=== PATIENT | male | born 1940 | race Caucasian/White ===

== ENCOUNTER → 2018-01-15 13:00 | Outpatient (CLI) | payer MEDICARE, OTHER, SELFPAY ==
[2018-01-15 13:47] LABS: Abs Immature Grans 0.03 k/cumm (0.0-0.09); Absolute Basophil Count 0.09 k/cumm (0.0-0.2); Absolute Lymphocyte Count 3.85 k/cumm (1.2-3.4); Basophils % 0.7; HCT 36.7 % (40.0-50.0); HGB 12.4 g/dL (13.5-17.5); Immature Grans % 0.2; Lymphocytes % 30.3; Mean Corp. HGB Concentration 33.8 g/dL (32.0-36.0); Mean Corpuscular Hemoglobin 31.1 pg (27.0-33.0); Monocytes % 9.4; Neutrophils % 57.4; Platelet Count 352 x1000/uL (130-400); RBC 3.99 m/cumm (4.50-6.00); RBC Distribution Width 12.9 % (11.8-14.1); White Blood Cell Count 12.72 k/cumm (4.4-10.8)
[2018-01-15 13:49] LABS: Absolute Eosinophil Count 0.25 k/cumm (0.0-0.7)
[2018-01-15 14:37] LABS: ALT 13 U/L (12-78); AST 13 U/L (15-37); Albumin 3.7 g/dL (3.4-5.0); Alkaline Phosphatase 97 U/L (46-116); Anion Gap 10.7 mmol/L (3-11); BUN 17 mg/dL (7-18); Bilirubin, Total 0.4 mg/dL (0.2-1.0); CO2 26.3 mmol/L (21.0-32.0); CREATININE 0.97 mg/dL (0.70-1.30); Chloride 104 mmol/L (98-107); Glucose 51 mg/dL (70-100); Potassium 4.1 mmol/L (3.5-5.1); Sodium 141 mmol/L (136-145); Total Protein 6.5 g/dL (6.4-8.2)
[2018-01-18 09:57] LABS: PSA, Diagnostic 0.3 ng/ml (0-6.5)
== END ==
PROVIDERS: PCP General Practice; Visit Provider Internal Medicine Medical Oncology
DX: C61 Malignant neoplasm of prostate (principal)
CPT/HCPCS: 36415; 80053; 84153; 85025

== ENCOUNTER 2018-04-26 12:17 | Outpatient (CLI) | payer MEDICARE, OTHER, SELFPAY ==
[2018-04-26 13:06] LABS: Abs Immature Grans 0.02 k/cumm (0.0-0.09); Absolute Basophil Count 0.08 k/cumm (0.0-0.2); Absolute Lymphocyte Count 1.75 k/cumm (1.2-3.4); Absolute Monocyte Count 1.19 k/cumm (0.11-0.7); Absolute Neutrophil Count 10.34 k/cumm (1.2-6.7); Basophils % 0.6; Eosinophils % 2.2; HCT 35.1 % (40.0-50.0); HGB 11.6 g/dL (13.5-17.5); Immature Grans % 0.1; Lymphocytes % 12.8; Mean Corpuscular Hemoglobin 30.7 pg (27.0-33.0); Mean Corpuscular Volume 92.9 fL (80-95); Mean Platelet Volume 10.8 fL (8.0-11.0); Monocytes % 8.7; Neutrophils % 75.6; Platelet Count 287 x1000/uL (130-400); RBC 3.78 m/cumm (4.50-6.00); RBC Distribution Width 12.7 % (11.8-14.1); White Blood Cell Count 13.68 k/cumm (4.4-10.8)
[2018-04-26 13:25] LABS: ALT 13 U/L (12-78); AST 10 U/L (15-37); Albumin 3.4 g/dL (3.4-5.0); Alkaline Phosphatase 83 U/L (46-116); Anion Gap 9.3 mmol/L (3-11); BUN 16 mg/dL (7-18); Bilirubin, Total 0.5 mg/dL (0.2-1.0); CO2 27.7 mmol/L (21.0-32.0); CREATININE 0.92 mg/dL (0.70-1.30); Calcium 8.8 mg/dL (8.5-10.1); Chloride 105 mmol/L (98-107); Glucose 96 mg/dL (70-100); Potassium 3.4 mmol/L (3.5-5.1); Sodium 142 mmol/L (136-145); Total Protein 6.5 g/dL (6.4-8.2)
[2018-04-27 09:14] LABS: PSA, Diagnostic 0.4 ng/ml (0-6.5)
== END 2018-04-26 12:37 ==
PROVIDERS: PCP General Practice; Visit Provider Internal Medicine Medical Oncology
DX: C61 Malignant neoplasm of prostate (principal)
CPT/HCPCS: 36415; 80053; 84153; 85025